=== PATIENT | female | born 1970 | race Caucasian/White ===

== ENCOUNTER 2016-12-03 14:54 | Emergency (ER) | payer BC ==
[~2016-12-03] VITALS: Ht 165.1 cm; Wt 70.7 kg
[~2016-12-03 14:54] MED LIST: AMBIEN10 MG PO; CALCIUM +D & M1 EAC1 PO; CIPRO500 MG PO; COPPER2 M1 PO; CRANBERRY TABL1 EACH PO; DAILY VALUE1 EACH PO; DIAZEPAM5 MG PO; HYDROCODON-ACE1 EACH PO; LEVAQUIN500 MG PO; MECLIZINE HCL25 MG PO; NORCO 5/3251 TABLET PO; PERCOCET 5/31 TABLET PO; SINGULAIR10 MG PO; TORADOL10 MG PO; TREXIMET 85-1 TABLET PO; VALIUM5 MG PO; VITAMIN C1000 MG PO; VITAMIN D10000 UNIT PO; ZOFRAN ODT4 MG PO; ZYRTEC-D1 TABLE1 PO; ZYRTEC5 MG PO
[2016-12-03 15:27] LABS: ADD MIUA? NO; BILIRUBIN NEGATIVE; BLOOD NEGATIVE; COLOR YELLOW ((YELLOW)); GLUCOSE (STRIP) NEGATIVE; KETONES NEGATIVE; LEUKOCYTES NEGATIVE; NITRITE NEGATIVE; PROTEIN (STRIP) NEGATIVE; SPECIFIC GRAVITY 1.014 (1.000-1.030); UCUL ADDED? NO; UROBILINOGEN 0.2 MG/DL (0.2-1.0)
[2016-12-03 15:59] LABS: MCH 31.4 PG (29.0-34.0); MCHC 33.8 G/DL (30.0-36.0); MEAN PLAT.VOLUME 10.4 uM^3 (9.5-12.4); PLATELET COUNT 262 K/uL (156-360); RBC DIS.WIDTH-CV 11.9 % (11.8-14.6); RBC DIS.WIDTH-SD 41.3 % (39-53); RED BLOOD COUNT 4.84 M/uL (3.80-5.20); WHITE BLOOD COUNT 8.7 K/uL (4.1-10.2)
[2016-12-03 16:11] LABS: CHLORIDE 106 mEq/L (99-109); POTASSIUM 3.9 mEq/L (3.7-5.4); SODIUM 141 mEq/L (136-147)
[2016-12-03 16:13] LABS: GLUCOSE 114 mg/dL (70-99)
[2016-12-03 16:14] LABS: ANION GAP 10 MEQ/L (2-14)
[2016-12-03 16:17] LABS: ALKALINE PHOSPHATASE 67 IU/L (3-129); GFR ESTIMATE (CALCULATED) > 59 mL/min/
[2016-12-03 16:18] LABS: UREA NITROGEN (BUN) 14 mg/dL (9-23)
[2016-12-03 16:26] LABS: QUANTITATIVE HCG < 4.0 MIU/ML
[2016-12-03] MEDS ORDERED: NORCO 5/3251 TABLET PO (20:06)
[2016-12-03 20:10] VITALS: BP 125/65
== END 2016-12-03 20:37 | disposition home or self-care (01) ==
LOC: EME 14:54 → RME 14:54
DX: K52.9 Noninfective gastroenteritis and colitis, unspecified (principal); Z88.2 Allergy status to sulfonamides
CPT/HCPCS: 74177; 76856; 80053; 81003; 84702; 85027; 99281; 99284; J2405; J3010; J7030

== ENCOUNTER 2016-12-18 09:41 | Emergency (ER) | payer BC ==
[~2016-12-18] VITALS: Ht 165.1 cm; Wt 71.0 kg
[2016-12-18] MEDS ORDERED: DONNATAL1 TABLET PO (11:27)
[2016-12-18] MEDS ORDERED: AUGMENTIN875 MG PO (11:27)
[2016-12-18 11:36] VITALS: BP 122/82
== END 2016-12-18 11:41 | disposition home or self-care (01) ==
LOC: EME 09:41
DX: R10.11 Right upper quadrant pain (principal); Z88.2 Allergy status to sulfonamides
CPT/HCPCS: 99281; 99283

== ENCOUNTER → 2017-01-30 | Outpatient (CLI) | payer BC ==
[~2017-01-30] VITALS: Ht 165.1 cm; Wt 69.9 kg
[~2017-01-30] MED LIST changes: +AUGMENTIN875 MG PO; +DONNATAL1 TABLET PO; +IMITREX100 MG PO; +NAPROSYN500 MG PO; +PRILOSEC20 MG PO
== END | disposition home or self-care (01) ==
LOC: AMB 07:50
DX: K86.2 Cyst of pancreas (principal); K52.9 Noninfective gastroenteritis and colitis, unspecified; K64.4 Residual hemorrhoidal skin tags; Z80.0 Family history of malignant neoplasm of digestive organs; Z88.2 Allergy status to sulfonamides
CPT/HCPCS: 88173; 88305; 88313; C1726; J0330; J2405

== ENCOUNTER 2017-09-02 10:31 | Emergency (ER) | payer BC ==
[~2017-09-02] VITALS: Ht 165.1 cm; Wt 74.8 kg
[~2017-09-02 10:31] MED LIST changes: +FLEXERIL10 MG PO
[2017-09-02 11:04] LABS: HEMATOCRIT 40.5 % (36.0-46.0); HEMOGLOBIN 14.2 G/DL (11.9-15.5); MCH 32.1 PG (29.0-34.0); MCHC 35.1 G/DL (30.0-36.0); MCV 91.4 FL (83-99); PLATELET COUNT 219 K/uL (156-360); RBC DIS.WIDTH-CV 12.4 % (11.8-14.6); RBC DIS.WIDTH-SD 41.3 % (39-53); RED BLOOD COUNT 4.43 M/uL (3.80-5.20)
[2017-09-02 11:16] LABS: CHLORIDE 106 mEq/L (99-109); POTASSIUM 3.7 mEq/L (3.7-5.4)
[2017-09-02 11:17] LABS: SODIUM 142 mEq/L (136-147)
[2017-09-02 11:18] LABS: GLUCOSE 93 mg/dL (70-99)
[2017-09-02 11:22] LABS: CREATININE 0.8 mg/dL (0.6-1.3); GFR ESTIMATE (CALCULATED) > 59 mL/min/
[2017-09-02 11:23] LABS: UREA NITROGEN (BUN) 17 mg/dL (9-23)
[2017-09-02 11:26] LABS: TROP-I INTERPRETATION NEGATIVE; TROPONIN-I < 0.01 ng/mL (0.0-0.30)
[2017-09-02] MEDS ORDERED: VENTOLIN HFA18 GM IH (13:03)
[2017-09-02 13:34] VITALS: BP 121/78
== END 2017-09-02 13:35 | disposition home or self-care (01) ==
LOC: EME 10:31
PROVIDERS: Nurse Practitioner Family
DX: J06.9 Acute upper respiratory infection, unspecified (principal); J20.9 Acute bronchitis, unspecified; R07.9 Chest pain, unspecified; G43.909 Migraine, unspecified, not intractable, without status migrainosus; Z90.49 Acquired absence of other specified parts of digestive tract; Z88.2 Allergy status to sulfonamides; J30.9 Allergic rhinitis, unspecified
CPT/HCPCS: 71046; 71275; 80048; 84484; 85027; 87502; 93005; 94640; 99281; 99285; J7030

== ENCOUNTER 2018-03-04 19:09 | Emergency (ER) | payer BC ==
[~2018-03-04] VITALS: Ht 165.1 cm; Wt 76.4 kg
[~2018-03-04 19:09] MED LIST changes: +VENTOLIN HFA18 GM IH
[2018-03-04 19:41] LABS: APPEARANCE CLEAR ((CLEAR)); BILIRUBIN NEGATIVE; BLOOD NEGATIVE; COLOR YELLOW ((YELLOW)); GLUCOSE (STRIP) NEGATIVE; KETONES NEGATIVE; LEUKOCYTES NEGATIVE; NITRITE NEGATIVE; PROTEIN (STRIP) NEGATIVE; UCUL ADDED? NO; UROBILINOGEN 0.2 MG/DL (0.2-1.0)
[2018-03-04 20:18] LABS: HEMATOCRIT 41.2 % (36.0-46.0); HEMOGLOBIN 14.1 G/DL (11.9-15.5); MCH 31.1 PG (29.0-34.0); MCHC 34.2 G/DL (30.0-36.0); MCV 90.7 FL (83-99); PLATELET COUNT 235 K/uL (156-360); RBC DIS.WIDTH-CV 12.2 % (11.8-14.6); RBC DIS.WIDTH-SD 40.7 % (39-53); RED BLOOD COUNT 4.54 M/uL (3.80-5.20); WHITE BLOOD COUNT 8.5 K/uL (4.1-10.2)
[2018-03-04 20:48] LABS: CHLORIDE 107 mEq/L (99-109); POTASSIUM 4.2 mEq/L (3.7-5.4); SODIUM 141 mEq/L (136-147)
[2018-03-04 20:50] LABS: GLUCOSE 114 mg/dL (70-99); TOTAL PROTEIN 7.1 g/dL (6.4-8.3)
[2018-03-04 20:52] LABS: TOTAL BILIRUBIN 0.4 mg/dL (0.0-1.0)
[2018-03-04 20:53] LABS: ALKALINE PHOSPHATASE 67 IU/L (3-129)
[2018-03-04 20:54] LABS: CREATININE 1.2 mg/dL (0.6-1.3); GFR ESTIMATE (CALCULATED) 51 mL/min/
[2018-03-04 20:55] LABS: AST (GOT) 18 IU/L (2-34); UREA NITROGEN (BUN) 19 mg/dL (9-23)
[2018-03-04 20:57] LABS: ALT (GPT) 14 IU/L (3-49)
[2018-03-04 21:02] LABS: QUANTITATIVE HCG < 4.0 MIU/ML
[2018-03-04] MEDS ORDERED: BENTYL20 MG PO (23:02)
[2018-03-04] MEDS ORDERED: NORCO 5/3251 TABLET PO (23:02)
[2018-03-04 23:21] VITALS: BP 111/84
== END 2018-03-04 23:21 | disposition home or self-care (01) ==
LOC: EME 19:09
DX: R10.31 Right lower quadrant pain (principal); Z87.442 Personal history of urinary calculi; Z90.49 Acquired absence of other specified parts of digestive tract; Z88.2 Allergy status to sulfonamides
CPT/HCPCS: 74177; 80053; 81003; 84702; 85027; 99281; 99284; J1885; J7040